=== PATIENT | female | born 1970 | race Caucasian/White ===

== ENCOUNTER → 2016-08-12 | Outpatient (CLI) | payer OTHER ==
[~2016-08-12] MED LIST: EFFEXOR XR150 MG PO; REGLAN10 M1 PO; SYNTHROID25 MCG PO; WELLBUTRIN XL150 MG PO
== END | disposition home or self-care (01) ==
LOC: NUC 07:58
DX: K31.84 Gastroparesis (principal)
CPT/HCPCS: 78264; A9541